=== PATIENT | female | born 1940 | race Caucasian/White ===

== ENCOUNTER 2021-04-23 09:39 | Outpatient (REF) | payer SELFPAY ==
--- NOTE | 2021-04-23 13:59 | MHC.AU.HAS ---
Hearing Aid Evaluation Date of Visit: 04/23/21 Historical Information: Description of Hearing: Right ear - Mild to severe SNHL with 92% speech understanding Left ear - Moderate to profound SNHL with 32% speech discrimination Current personal amplification information, if applicable: None Summary: Due to patient's increasing difficulties understanding speech and the very poor speech discrimination for the left ear, recommend a CROS hearing aid system to facilitate communication Discussed appropriate styles and levels of technology. Patient would like to try the [id number] style. [employer] is the only [employer] which has custom CROS aids. Audiogram and medical clearance from ENT in chart. Hearing Aid Prescription: Based on the individual?s shared listening needs, communication environments, dexterity, desire for connectivity, and personal preferences, the following prescription for amplification has been made: Right ear: Studio Musician: [employer] Model: Virto B 50-312 Battery Size: 312 Color: [facility] Clinical Nutritionist: Power Type of Dome: Type of Mold: Left ear: Studio Musician: [employer] Model: CROS B-312 Battery Size: 312 Color: [facility] Action Taken/Action Needed: [place] Impressions Taken Comments: Patient to discuss options with family and call if she wants to proceed with order and pay deposit Primary Diagnosis: H90.3 Bilateral Sensorineural Hearing Loss Signature: Provider: Leobardo Mccauley, CCC-A
== END 2021-04-23 09:40 | disposition home or self-care (01) ==
LOC: HO.HAP 09:39
PROVIDERS: Visit Provider Internal Medicine Endocrinology, Diabetes & Metabolism
DX: Z13.89 Encounter for screening for other disorder (principal)

== ENCOUNTER 2023-09-06 11:01 | Outpatient (AMB) | payer MEDICARE, SELFPAY ==
--- NOTE | 2023-09-06 11:03 | A.OFFVIS_ITS ---
Intake Vital Signs 09/06/23 11:07 Height 5 ft 4 in Weight 150 lb BMI 25.7 BP 122/78 Blood Pressure Location Rt brachial Position Sitting Pulse 54 Pulse Source Pulse Oximeter Pulse Oximetry (%) 96 Oxygen Delivery Method Room Air Intake Visit Reasons: f/u for Epilepsy last seen on 2020-Confirmed Intake Note: Patient presents for epilepsy follow up. Patient states this is a follow up on my epilepsy. Allergies brompheniramine [Dimetapp Cold-Allergy (PE)] Allergy (Unknown, Verified 09/06/23 11:08) Unknown ciprofloxacin [From Cipro HC] Allergy (Unknown, Verified 09/06/23 11:08) Unknown hydrocortisone [From Cipro HC] Allergy (Unknown, Verified 09/06/23 11:08) Unknown ibuprofen [From Motrin] Allergy (Unknown, Verified 09/06/23 11:08) Unknown Iodinated Contrast Media Allergy (Unknown, Verified 09/06/23 11:08) Unknown levofloxacin [From Levaquin] Allergy (Unknown, Verified 09/06/23 11:08) Unknown oxycodone Allergy (Unknown, Verified 09/06/23 11:08) Hallucinations phenylephrine [Dimetapp Cold-Allergy (PE)] Allergy (Unknown, Verified 09/06/23 11:08) Unknown phenylpropanolamine Allergy (Unknown, Verified 09/06/23 11:08) Unknown pseudoephedrine [PSEUDOEPHEDRINE] Allergy (Unknown, Unverified 09/06/23 11:08) UNKNOWN Sulfa (Sulfonamide Antibiotics) Allergy (Unknown, Unverified 09/06/23 11:08) RASH sulfamethoxazole [Sulfamethoxazole] Allergy (Unknown, Unverified 09/06/23 11:08) RASH tofacitinib [From Xeljanz] Allergy (Unknown, Verified 09/06/23 11:08) Dizziness trimethoprim Allergy (Unknown, Verified 09/06/23 11:08) Unknown prednisone Adverse Reaction (Unknown, Verified 09/06/23 11:08) Nausea and Vomiting COTRIM Allergy (Unknown, Uncoded 09/06/23 11:08) RASH,DRY HEAVES,NAUSEA,DIARRHEA From DIMETAPP Adverse Reaction (Unknown, Uncoded 09/06/23 11:08) UNKNOWN Medication List - Last Reconciled 09/06/23 by SAMEERA Perrin acetaminophen (Tylenol Extra Strength) 1,000 mg PO BEDTIME PRN amlodipine 5 mg PO DAILY aspirin 81 mg PO DAILY atorvastatin 40 mg PO DAILY carvedilol 25 mg PO BID cholecalciferol (vitamin D3) 125 mcg PO DAILY docusate sodium (Colace) 100 mg PO BID duloxetine 60 mg PO DAILY ferrous sulfate 325 mg PO BID hydralazine 100 mg PO TID lamotrigine 75 mg (3 x 25 mg) PO BID 30 days levetiracetam (Keppra) 1,000 mg PO BID 90 days losartan 25 mg PO DAILY mirtazapine 30 mg PO BEDTIME multivitamin 1 tab PO DAILY ondansetron HCl 4 mg PO Q6H PRN 30 days pantoprazole 40 mg PO DAILY pyridoxine (vitamin B6) 25 mg PO BID sennosides (senna) 17.2 mg PO DAILY HPI HPI Comments History of Present Illness Details 83-yr-old female presents for f/u visit. Pt was last seen in [address] [facility]. Pt reports she had a kidney stone which was tx'd w/ lithotripsy in May 2023. She has never had a kidney stone prior.During the hospitalization, her Keppra dose was lowered to 750mg bid. Approx a week afterwards, she started having seizure auras. So, we increased her Keppra back to 1000mg bid. Her last full seizure was approx 9 yrs ago. She also notes that she is scheduled for a nasal basal cell removal and reconstruction in Dec 2023- through [facility]. Last week, she woke up at night to use the bathroom, got up too quickly, lost her balance and feel backwards, and could not get back up on her own. She was evaluated in [facility] ER. Head imaging was negative. CXR showed left rib fx. She is trying to get up slower. She does feel that she is more off-balance overall. Using a cane. Has a walker at home. She feels her memory is stable. She is trying to stay active- does her own cooking. 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 She lives with her dog. She is playing words w/ her sister and reads a lot. She is not using her CPAP any longer- as she could not sleep with it- the mask was uncomfortable and made her more anxious. [facility] Medical History (Updated 09/06/23 @ 12:50 by SAMEERA Perrin) Depression with anxiety HLD (hyperlipidemia) HTN (hypertension) Obstructive sleep apnea History of intracranial hemorrhage Surgical History (Updated 09/06/23 @ 11:10 by MARYAN Mendoza) H/O lithotripsy Hx of vein stripping H/O: hysterectomy Hx of cataract surgery Family History Mother Diabetes Breast cancer Father Prostate cancer Diabetes Hypertension Brother Diabetes Myocardial infarction Social History Alcohol intake: current Alcohol intake frequency: holidays/special occasions only Patient Tobacco Use Status: Never used Tobacco Review of Systems Const All systems reviewed & are unremarkable except as noted in HPI and below Physical Exam Vital Signs: Last Vital Signs Pulse 54 09/06/23 11:07 BP 122/78 09/06/23 11:07 Pulse Ox 96 09/06/23 11:07 Oxygen Delivery Method Room Air 09/06/23 11:07 BMI result Body Mass Index 25.7 Const General: cooperative and no acute distress Orientation/consciousness: patient oriented x3 HEENT Head: Yes normocephalic Resp Effort & Inspection: normal respiratory effort and able to speak in complete sentences Neuro Other: Slow to stand, unsteady without cane. General: patient oriented x3 and CN's II-XI intact bilaterally Cognition (Neuro): normal cognition Motor exam (neuro): 5/5 motor strength present throughout Psych Appearance: grossly normal Mental Status: mental status grossly normal Speech and movement: Normal speech and movement present Affect: normal affect Attitude: cooperative Thought process: Normal thought process present Thought content: Normal thought content present Insight: Good insight present (Psych) Judgement: Good judgement present (Psych) Assessment & Plan Assessment & Plan (1) Epilepsy: Code(s): G40.909 - Epilepsy, unspecified, not intractable, without status epilepticus (2) Difficulty balancing: Code(s): R29.818 - Other symptoms and signs involving the nervous system (3) Fall: Code(s): W19.XXXA - Unspecified fall, initial encounter (4) Left rib fracture: Code(s): S22.32XA - Fracture of one rib, left side, initial encounter for closed fracture Plan For seizures: Continue Lamotrigine 75mg po bid Continue Keppra 1000mg po bid For h/o right parietal lobe cyst: will request recent head CT reports and previous MRI report to assess stability. For recent fall, gait difficulties- Advised to stand slowly, use walker at night. Will request home PT eval & Tx for home safety, fall prevention, gait eval & tx. Pt is homebound as she requires assistive device and cannot leave home w/o assistance d/t fall risk, unable to drive d/t epilepsy. f/u in 6 months or sooner prn Orders: [facility]errals [facility] Referral R29.818 - Other symptoms and signs involving the nervous system, S22.32XA - Fracture of one rib, left side, initial encounter for closed fracture, W19.XXXA - Unspecified fall, initial encounter Medications: Changed From lamotrigine 75 mg (3 x 25 mg) PO BID 30 days 180 tabs 6RF To lamotrigine 75 mg (3 x 25 mg) PO BID 90 days 540 tabs 1RF Refilled levetiracetam (Keppra) 1,000 mg PO BID 90 days 180 tabs 1RF Coding Level of Care Code Est Pt Level 4 (25478) Diagnoses Epilepsy G40.909 Difficulty balancing R29.818 Fall W19.XXXA Left rib fracture S22.32XA
[2023-09-06 11:07] VITALS: BP 122/78; PULSE 54; O2SAT 96; BMI 25.7
== END 2023-09-06 11:48 | disposition home or self-care (01) ==
PROVIDERS: PCP Internal Medicine; Visit Provider Nurse Practitioner Family
DX: G40.909 Epilepsy, unspecified, not intractable, without status epilepticus (principal); R29.818 Other symptoms and signs involving the nervous system; R29.6 Repeated falls; S22.32XA Fracture of one rib, left side, initial encounter for closed fracture
CPT/HCPCS: 99214

== ENCOUNTER → 2023-09-06 11:01 | Outpatient (BNVA) | payer MEDICARE, SELFPAY | PROVIDERS: PCP Internal Medicine; Visit Provider Nurse Practitioner Family | DX: G40.909 Epilepsy, unspecified, not intractable, without status epilepticus (principal); S22.32XA Fracture of one rib, left side, initial encounter for closed fracture; R29.818 Other symptoms and signs involving the nervous system; Z91.81 History of falling | CPT/HCPCS: 99212 ==